=== PATIENT | male | born 1985 | race Caucasian/White ===

== ENCOUNTER 2017-10-03 11:35 | Outpatient (CLI) | payer OTHER ==
[2017-10-03 12:13] LABS: Amphetamine Not Detected (NotDetected); Barbiturates Screen Not Detected (NotDetected); Benzodiazepine Screen Not Detected (NotDetected); Cocaine Metabolite Screen Not Detected (NotDetected); Medtox Control Line Valid? VALID (VALID); Methadone Not Detected (NotDetected); Methamphetamine Not Detected (NotDetected); Opiate Screen Not Detected (NotDetected); Oxycodone Screen Not Detected (NotDetected); Phencyclidine (PCP) Not Detected (NotDetected); THC/Cannabinoid Screen Not Detected (NotDetected); Tricyclic Screen Not Detected (NotDetected)
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
== END 2017-10-03 11:36 | disposition home or self-care (01) ==
LOC: MADLABBHPM 11:35
PROVIDERS: ATTEND Family Medicine
DX: Z51.81 Encounter for therapeutic drug level monitoring (principal); F90.9 Attention-deficit hyperactivity disorder, unspecified type; N50.812 Left testicular pain
CPT/HCPCS: 36415; 76870; 80306; 93976

== ENCOUNTER 2017-10-31 15:52 | Emergency (ER) | payer OTHER ==
[2017-10-31] MEDS ORDERED: Sulfameth/Trimethoprim DS 800-160mg TAB ONE (16:10)
[2017-10-31] MEDS ORDERED: Adacel (T-DAP) 0.5 ML VIAL ONE (16:10)
[2017-10-31 16:40] LABS: #Basophils 0.2 thou/uL (0.0-0.2); #Eosinphils 0.2 thou/uL (0.0-0.7); #Lymphocytes 2.6 thou/uL (1.20-3.40); #Monocytes 1.2 thou/uL (0.11-0.59); #Neutrophils 14.8 thou/uL (1.40-6.50); %Basophils 0.9 % (0.0-1.0); %Eosinophils 0.9 % (0.0-10.0); %Lymphocytes 13.5 % (21.0-51.0); %Monocytes 6.1 % (0.0-10.0); %Neutrophils 78.6 % (42.0-75.0); Hemoglobin 16.4 g/dL (14.0-18.0); Mean Corpuscular HGB CONC 34.8 g/dL (32.0-36.0); Mean Corpuscular Hemoglobin 31.9 pg (27.0-31.0); Mean Corpuscular Volume 91.4 fl (80.0-94.0); Mean Platelet Volume 8.7 fL (7.4-10.4); Platelet Count 295 thou/uL (130-400); RBC Distribution Width 12.2 % (11.5-14.5); Red Blood Cell (RBC) Count 5.14 mill/uL (4.70-6.10); White Blood Cell (WBC) Count 18.8 thou/uL (4.8-10.8)
[2017-10-31] MEDS ORDERED: Lidocaine 1% 20 ML MDV ONE (16:58)
[2017-10-31] MEDS ORDERED: cefTRIAXone\\ROCEPHIN 1 GM VIAL ONE (16:58)
[2017-10-31] MEDS ORDERED: Bacitracin Zinc 1 Packet ONE (17:06)
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
== END 2017-10-31 17:20 | disposition home or self-care (01) ==
LOC: MADERS 15:52
DX: S60.512A Abrasion of left hand, initial encounter (principal); L03.114 Cellulitis of left upper limb; F98.8 Other specified behavioral and emotional disorders with onset usually occurring in childhood and adolescence; F17.210 Nicotine dependence, cigarettes, uncomplicated; Z79.899 Other long term (current) drug therapy; X58.XXXA Exposure to other specified factors, initial encounter
CPT/HCPCS: 36415; 85025; 87040; 90471; 90715; 96372; J0696; J2001

== ENCOUNTER 2025-09-01 13:33 | Emergency (ER) | payer OTHER, SELFPAY ==
[2025-09-01] MEDS ORDERED: Boostrix 0.5 ML (Tdap) VIAL (>/=7 yrs of age) ONE (13:53)
[2025-09-01] MEDS ORDERED: Acetaminophen 500 MG TAB ONE (13:53)
[2025-09-01] MEDS ORDERED: Ketorolac Tromethamine 30 MG (1 mL) VIAL ONE (13:53)
[2025-09-01] MEDS ORDERED: Amoxicillin/Potassium Clav 875 MG TAB ONE (13:54)
== END 2025-09-01 14:46 | disposition home or self-care (01) ==
LOC: MADERS 13:33
DX: S91.331A Puncture wound without foreign body, right foot, initial encounter (principal); L03.115 Cellulitis of right lower limb; S92.354A Nondisplaced fracture of fifth metatarsal bone, right foot, initial encounter for closed fracture; F17.210 Nicotine dependence, cigarettes, uncomplicated; Z23 Encounter for immunization; W45.0XXA Nail entering through skin, initial encounter; Z55.6 Problems related to health literacy
CPT/HCPCS: 90471; 90715; 96372; J1885